=== PATIENT | female | born 1965 | race Caucasian/White ===

== ENCOUNTER 2024-02-11 13:04 | Inpatient (IN) | payer OTHER ==
[2024-02-11] MEDS ORDERED: Acetaminophen 325 MG Tab PO PRN (13:22)
[2024-02-11] MEDS ORDERED: Sennosides/Docusate Sodium 50-8.6 MG Tab PO PRN (13:22)
[2024-02-11] MEDS ORDERED: Ondansetron 4 MG Tab.DIS PO PRN (13:22)
[2024-02-11] MEDS ORDERED: LORazepam 2 MG/ML SDV IVPUSH PRN (13:22)
[2024-02-11] MEDS ORDERED: Magnesium Hydroxide 400 MG/5 ML Susp 30 ML Cup PO PRN (13:22)
[2024-02-11] MEDS ORDERED: Ondansetron 4 MG/2 ML SDV IV PRN (13:22)
[2024-02-11] MEDS: Ampicillin/Sulbactam Na 3 GM in Sodium Chloride 0.9% 100 ML IV SCH (14:56)
[2024-02-11] MEDS: HYDROmorphone 0.5 MG/0.5 ML Syringe IVPUSH PRN (14:56)
[2024-02-11] MEDS: Acetaminophen/HYDROcodone 325-5 MG Tab PO PRN (16:43)
[2024-02-11] MEDS: Benzocaine/Cetylpyridinium/Menthol Lozenge MUCMEM PRN (20:15)
[2024-02-12 04:56] LABS: HEMATOCRIT 35.2 % (34.3-46.0); HEMOGLOBIN 11.4 g/dL (11.2-15.5); MEAN CORPUSCULAR HGB CONC 32.4 g/dL (31.6-35.5); MEAN CORPUSCULAR VOLUME 89.6 fL (81.4-99.0); RED BLOOD CELL COUNT 3.93 M/uL (3.77-5.24); WHITE BLOOD CELL COUNT,WBC 9.2 K/uL (3.2-11.0)
[2024-02-12 05:37] LABS: A/G RATIO 0.7 (1.2-2.2); ALANINE AMINOTRANSFERASE,ALT 19 U/L (12-78); ALKALINE PHOSPHATASE 86 U/L (46-116); ANION GAP 5.6 mmol/L (5.0-14.0); ASPARTATE AMNIOTRANSFERASE,AST 12 U/L (15-37); BILIRUBIN TOTAL 0.3 mg/dL (0.2-1.0); BLOOD UREA NITROGEN,BUN 10 mg/dL (7-18); C-REACTIVE PROTEIN 4.18 mg/dL (<0.50); CALCIUM 9.2 mg/dL (8.5-10.1); CARBON DIOXIDE,CO2 31 mmol/L (21-32); CHLORIDE,CL 103 mmol/L (100-108); CREATININE 0.9 mg/dL (0.6-1.0); EST CRCL DRUG DOSING (CG) 76.74 mL/min; ESTIMATED GFR 75 mL/min (>60); GLUCOSE RANDOM 96 mg/dL (74-106); POTASSIUM,K 4.7 mmol/L (3.6-5.2); PROTEIN TOTAL,TP 7.1 g/dL (6.4-8.2); SODIUM,NA 140 mmol/L (140-148)
[2024-02-12] MEDS ORDERED: Sodium Chloride 0.9% 10 ML Syringe IV PRN (09:27)
[2024-02-12] MEDS: diphenhydrAMINE 25 MG Cap PO PRN (20:31)
[2024-02-13 04:54] LABS: BASOPHILS ABSOLUTE AUTO 0.06 K/uL (0.00-0.10); BASOPHILS PERCENT AUTO 0.7 % (0.1-1.3); EOSINOPHILS ABSOLUTE AUTO 0.29 K/uL (0.00-0.40); EOSINOPHILS PERCENT AUTO 3.4 % (0.0-5.4); HEMATOCRIT 34.9 % (34.3-46.0); HEMOGLOBIN 11.4 g/dL (11.2-15.5); IMMATURE GRAN ABSOLUTE AUTO 0.04 K/uL (0.00-0.23); IMMATURE GRAN PERCENT AUTO 0.5 % (0.0-0.7); LYMPHOCYTES ABSOLUTE AUTO 2.77 K/uL (0.8-3.3); LYMPHOCYTES PERCENT AUTO 32.7 % (11.4-47.7); MEAN CORPUSCULAR HEMOGLOBIN 29.2 pg (31.6-35.5); MEAN CORPUSCULAR HGB CONC 32.7 g/dL (31.6-35.5); MEAN CORPUSCULAR VOLUME 89.5 fL (81.4-99.0); MONOCYTES ABSOLUTE AUTO 0.84 K/uL (0.20-0.90); MONOCYTES PERCENT AUTO 9.9 % (3.3-12.6); NEUTROPHILS ABSOLUTE AUTO 4.48 K/uL (1.0-7.6); NEUTROPHILS PERCENT AUTO 52.8 % (40.0-78.1); PLATELET COUNT,PLT 356 K/uL (130-375); WHITE BLOOD CELL COUNT,WBC 8.5 K/uL (3.2-11.0)
[2024-02-13 05:18] LABS: A/G RATIO 0.7 (1.2-2.2); ALANINE AMINOTRANSFERASE,ALT 20 U/L (12-78); ALKALINE PHOSPHATASE 85 U/L (46-116); ANION GAP 8.6 mmol/L (5.0-14.0); ASPARTATE AMNIOTRANSFERASE,AST 15 U/L (15-37); BILIRUBIN TOTAL 0.2 mg/dL (0.2-1.0); BLOOD UREA NITROGEN,BUN 11 mg/dL (7-18); CALCIUM 8.8 mg/dL (8.5-10.1); CARBON DIOXIDE,CO2 30 mmol/L (21-32); CHLORIDE,CL 105 mmol/L (100-108); CREATININE 0.9 mg/dL (0.6-1.0); EST CRCL DRUG DOSING (CG) 76.74 mL/min; ESTIMATED GFR 75 mL/min (>60); GLUCOSE RANDOM 99 mg/dL (74-106); POTASSIUM,K 4.5 mmol/L (3.6-5.2); PROTEIN TOTAL,TP 7.1 g/dL (6.4-8.2); SODIUM,NA 144 mmol/L (140-148)
[2024-02-13] MEDS: Amoxicillin/Clavulanate K 875-125 MG Tab PO ONE (12:08)
== END 2024-02-13 13:22 | disposition home or self-care (01) | DRG 153 ==
LOC: JP.MS 13:04
PROVIDERS: ADMIT Hospitalist; ATTEND Hospitalist
DX: J02.0 Streptococcal pharyngitis (principal); B27.09 Gammaherpesviral mononucleosis with other complications; F32.A Depression, unspecified; H54.7 Unspecified visual loss; Z90.79 Acquired absence of other genital organ(s); Z85.43 Personal history of malignant neoplasm of ovary; Z79.899 Other long term (current) drug therapy; Z90.49 Acquired absence of other specified parts of digestive tract; Z90.710 Acquired absence of both cervix and uterus; Z90.722 Acquired absence of ovaries, bilateral; Z98.890 Other specified postprocedural states
CPT/HCPCS: 36415; 80053; 83605; 84145; 85025; 85027; 86140; 99223; 99231; 99239; A9270-GY; J0295; J1171; J3490

== ENCOUNTER 2024-12-19 06:27 | Day surgery (SDC) | payer OTHER ==
[2024-12-19] MEDS: Lactated Ringers 1,000 ML IV SCH (07:15)
[2024-12-19] MEDS ORDERED: Propofol 200 MG/20 ML SDV ONE (07:17)
[2024-12-19] MEDS ORDERED: Midazolam 1 MG/ML 2 ML SDV ONE (07:17)
[2024-12-19] MEDS ORDERED: fentaNYL 50 MCG/ML SDV ONE (07:17)
== END 2024-12-19 09:14 | disposition home or self-care (01) ==
LOC: JP.SDS 06:27
PROVIDERS: ATTEND Surgery
DX: K44.9 Diaphragmatic hernia without obstruction or gangrene (principal); K29.70 Gastritis, unspecified, without bleeding; Z87.891 Personal history of nicotine dependence; Z79.899 Other long term (current) drug therapy
CPT/HCPCS: 00731; 43239; 87081; J2250; J2704; J3010; J7120